=== PATIENT | male | born 2000 | race Caucasian/White ===

== ENCOUNTER 2021-03-05 00:08 | Emergency (ER) | payer OTHER ==
[2021-03-05 00:52] VITALS: PULSE 80; TEMP 98.6; BMI 20.6
[2021-03-05] MEDS ORDERED: ACETAMINOPHEN 500 MG TABLET (FP) PO ONE (02:24)
[2021-03-05] MEDS ORDERED: LIDOCAINE 5% TOPICAL PATCH TP ONE ×2 (04:21→07:37)
[2021-03-05] MEDS ORDERED: LIDOCAINE 5% TOPICAL PATCH ONE (04:25)
[2021-03-05 07:03] VITALS: BP 110/62
[2021-03-05] MEDS ORDERED: LIDOCAINE PATCH REMOVAL MC ONE ×2 (17:00→20:00)
== END 2021-03-05 07:04 | disposition home or self-care (01) ==
LOC: JER 00:08
DX: R06.00 Dyspnea, unspecified (principal); V89.2XXA Person injured in unspecified motor-vehicle accident, traffic, initial encounter; Y92.9 Unspecified place or not applicable
CPT/HCPCS: 72100-TC-FY; 72170-TC-FY; 73552-TC-LT-FY; 99284-25